=== PATIENT | female | born 1975 | race Two or more races ===

== ENCOUNTER 2023-10-31 14:20 | Emergency (ER) | payer MEDICAID, OTHER ==
[~2023-10-31] VITALS: Ht 167.6 cm; Wt 84.0 kg
[2023-10-31 15:14] VITALS: BP 114/68; PULSE 97; RESP 17; TEMP 98.4; O2SAT 98
[2023-10-31] MEDS: ACETAMINOPHEN 500 MG TAB PO ONE (15:48)
[2023-10-31] MEDS ORDERED: METH-1182 PO (15:52)
[2023-10-31] MEDS ORDERED: IBUP-1456 PO (15:52)
== END 2023-10-31 16:06 | disposition home or self-care (01) ==
LOC: ER 14:20 → EDBD 14:20 → ER 16:04
DX: S16.1XXA Strain of muscle, fascia and tendon at neck level, initial encounter (principal); R51.9 Headache, unspecified; Z79.899 Other long term (current) drug therapy; V43.52XA Car driver injured in collision with other type car in traffic accident, initial encounter; Y93.I9 Activity, other involving external motion; Y92.89 Other specified places as the place of occurrence of the external cause; Y99.8 Other external cause status
CPT/HCPCS: 70450; 72040